=== PATIENT | female | born 1995 | race Asian ===

== ENCOUNTER 2017-05-18 21:16 | Emergency (ER) | payer OTHER ==
[~2017-05-18] VITALS: Ht 165.1 cm; Wt 6.0 kg
[2017-05-18 21:38] VITALS: TEMP 36.6; Ht 165.1 cm; Wt 6.0 kg
[2017-05-18] MEDS ORDERED: XYLOCAINE 1%/SOD BICARB 20 ML VIAL INFIL ONE (22:15)
--- NOTE | 2017-05-18 22:23 | DIAGNOSTIC IMAGING REPORT ---
R FINGER(S) MIN 2 VIEWS ROUTINE CLINICAL HISTORY: R distal finger infection infection COMPARISON: None. DISCUSSION: The bones and joint spaces appear intact. There is no evidence of fracture, dislocation or bony disease. Nonspecific soft tissue edema overlying the distal phalanx third finger IMPRESSION: Soft tissue edema. No acute bony abnormality. The above report was generated using voice recognition software. It may contain grammatical, syntax or spelling errors. Electronically signed by: Isaac Duncan M.D. 05/18/2017 10:22 PM Dictated Date/Time: 05/18/2017 10:21 PM
--- NOTE | 2017-05-18 23:04 | EMERGENCY ROOM VISIT NOTE ---
ED Visit Note First contact with patient: 21:49 CHIEF COMPLAINT: Finger infection HISTORY OF PRESENT ILLNESS: This 22-year-old female patient presents to the emergency department complaining of pain and swelling of the distal aspect of the right third finger. Doesn't remember any injury to the area before it got swollen and tender. . The patient has not had a fever. There has been no discharge. The patient has tried nothing for pain. The patient's tetanus shot is up-to-date. REVIEW OF SYSTEMS: A 6 system review of systems was completed with positives and pertinent negatives listed in the HPI. ALLERGIES: Nickel MEDICATIONS: Reviewed PMH: Otherwise healthy. SOCIAL HISTORY: The patient is a [employer] student. PHYSICAL EXAM: Vital Signs: Reviewed Nurse's notes, vital signs stable. GENERAL: 22-year-old female, in no acute distress, nontoxic in appearance , well-developed, well-nourished. SKIN: There is erythema, swelling, and tenderness of the nail fold around the right third digit. There is fluctuance but no drainage. There is no pus under the nail. There is no lymphangitic streaking up the hand. Capillary refill less than two seconds. MUSCULOSKELETAL : The patient has full range of motion and strength of the right third digit. Peripheral pulses 2+. ED COURSE: I examined the patient. A finger x-ray was obtained Patient Name: NURIA PERDOMO Unit Number: [id number] Dictated: 05/18/172220 Transcribed: 05/18/172220 MS Printed Date/Time: [~ rep prt dt]/[~ rep prt tm] [~ rep ct labl] - [~ rep ct ivnm] [facility] [place] [address] Dictated: 05/18/172220 Transcribed: 05/18/172220 MS Printed Date/Time: [~ rep prt dt]/[~ rep prt tm] [~ rep ct labl] - [~ rep ct ivnm] IMPRESSION: Soft tissue edema. No acute bony abnormality. The above report was generated using voice recognition software. It may contain grammatical, syntax or spelling errors. Electronically signed by: Isaac Duncan M.D. 05/18/2017 10:22 PM Dictated Date/Time: 05/18/2017 10:21 PM The status of this report is Signed. Draft = Not yet reviewed or approved by Radiologist. Signed = Reviewed and approved by Radiologist. <AttendingPhy></AttendingPhy> <FamilyPhy>No Doctor, Assigned</FamilyPhy> < PrimaryPhy>No Doctor, Assigned</PrimaryPhy> <UnitNumber>[id number]</UnitNumber> <VisitNumber>[id number]</VisitNumber> <PatientName>NURIA PERDOMO</PatientName> < DateOfBirth>1995</DateOfBirth> <Location>[facility]</Location> <ServiceDate>03/25</ServiceDate> <MNE>ESINDI</MNE> <OrderingPhy>Gisele Katz PA-C</ OrderingPhy> <OrderingPhyMNE>f rep ord dr pantoja</OrderingPhyMNE> <DictatingPhyMNE> f rep dict dr pantoja</DictatingPhyMNE> <CCListMNE>f rep ct mne</CCListMNE> < AdmittingPhyMNE>f pt admit dr pantoja</AdmittingPhyMNE> <AttendingPhyMNE>f pt attend dr pantoja</AttendingPhyMNE> <ConsultingPhyMNE>f pt consult dr pantoja</ConsultingPhyMNE> <FamilyPhyMNE>f pt fam dr pantoja</FamilyPhyMNE> <OtherPhyMNE>f pt other dr pantoja</OtherPhyMNE> < PrimaryPhyMNE>f pt prim care dr pantoja</PrimaryPhyMNE> <ReferringPhyMNE>f pt referring dr pantoja</ReferringPhyMNE> Verbal consent was obtained to perform the procedure. The area of fluctuance of the with cleaned with Betadine. 1% lidocaine An 11 blade was then used to make a 0.5 cm incision to drain the paronychia. A large amount of pus was expressed and a culture was obtained. More was expressed with pressure until all of the pus was relieved. The area was thoroughly cleaned with sterile saline. The area was then dressed with bacitracin and a bandage. The patient tolerated the procedure well. The patient was discharged home in stable condition. DIAGNOSIS: Paronychia of the right finger DISCHARGE INSTRUCTIONS: Wash the finger twice daily with soap and water. Do not soak the finger in dirty water such as doing dishes or taking baths. Soak the finger in clean warm water 4 times a day for 20 minutes each, take Keflex 500 mg 4 times daily. Return if the area seems to be getting worse. This chart was completed in part utilizing [employer] Voice Recognition software. Attempts were made to minimize the grammatical errors, random word insertions, pronoun errors and incomplete sentences. Any formal questions or concerns about the content, text or information contained within the body of this dictation should be directly addressed to the provider for clarification.
[2017-05-18] MEDS ORDERED: CEPH500C PO (23:07)
[2017-05-18] MEDS ORDERED: CEPHALEXIN MONOHYDRATE 250 MG CAP PO ONE (23:15)
[2017-05-18 23:26] VITALS: BP 132/84; PULSE 69; O2SAT 98
== END 2017-05-18 23:27 | disposition home or self-care (01) ==
LOC: C.EDB 21:17 → C.EDD 23:27
DX: L03.011 Cellulitis of right finger (principal)

== ENCOUNTER 2018-08-07 04:50 | Observation (INO) ==
[2018-08-07] MEDS ORDERED: SODIUM CHLORIDE 0.9% 1000ML 1,000 ML IV ONE ×2 (05:17→06:27)
[2018-08-07] MEDS ORDERED: DiphenhydrAMINE HCL 50 MG/ML VIAL IV STA (05:18)
[2018-08-07] MEDS ORDERED: KETOROLAC 30 MG/ML VIAL IV STA (05:18)
--- NOTE | 2018-08-07 05:22 | Emergency Department Note ---
ED Provider Note Name: Erlin Toribio Age: 23 F Arrives Via: POV Informant: Pt and Friend CC: lower abdominal pain HPI: 23 female arrives for evaluation of lower abdominal pain. Notes gradually worsening over last 12 hours. Mild discomfort this weekend while she was in [place] at a music festival. She felt that she may have hurt it while jumping. Has had issues with bowel movements over the last few days. No fevers, chills, nausea, vomiting, cp, sob, leg swelling, rashes, urinary symptoms, diarrhea, nor other symptoms. She notes periodic abdominal pains. Movement makes pain worse. Rest makes better. Advil did not help pain earlier. ROS: See above HPI for pertinent positives & negatives. A total of 10 systems reviewed and were otherwise negative. Past Medical History: GERD Past Surgical History: None Family History: No abdominal issues Social History: Student, no smoking, no drugs Home Medications: None Allergies None Physical: Vitals: 81/58, P 96, R 18, T 36.6, O2 99 Exam: GENERAL: Patient is uncomfortable appearing and in mild distress. EYES: No scleral icterus, unremarkable pupils. ENT: Mucous membranes moist, no nasal congestion. NECK: No masses appreciated, no meningismus, trachea is midline. RESPIRATORY: No dyspnea. Clear to auscultation and equal bilaterally. No wheeze, no rhonchi. CARDIOVASCULAR: Regular rate and rhythm. No murmurs, rubs, gallops appreciated. GASTROINTESTINAL: TTP entire lower abdomen, otherwise abdomen soft, non-tender, no peritonitis. Bowel sounds positive. No masses appreciated. BACK: No midline tenderness, no CVA tenderness EXTREMITIES: Normal motion all extremities, no cyanosis, no edema. NEUROLOGIC: Alert and oriented, no acute motor or sensory deficits, no focal weakness, cranial nerves grossly intact. SKIN: No rash, no jaundice, no diaphoresis. ED Course: Prior Medical Record, Triage/Nursing Notes, Medications, Allergies reviewed by Me Vital Signs: reviewed and remarkable for hypotension (chronic based on chart review) Labs: Reviewed and remarkable for wnl Interventions: Saline Lock, Benadryl 50mg IV, Toradol 30mg IV Imaging: X ray results are stated below per my interpretation: KUB: 1 view: Moderate amount of air throughout colon. No evidence obstruction appreciated. Umbilical piercing noted. EKG: None Consults: None Reassessments/Times: 0605 Continued pain with palpation though sleeping when not being examined Blood pressure: Hypotensive (chronic) No Referral necessary Disposition: Signed out to Dr Montgomery pending CT Differentials: Appendicitis, UTI, Renal Colic, Dehdyration, Constipation, Colitis, Pancreatitis, GB, PUD, , Ectopic , Ovarian torsion, TOA amongst other pathologies. Medical Decision Makin yr old female with bilateral lower abodminal TTP. She has some upper abdominal TTP as well. Work-up benign. Continued pain with palpation of abdomen thus felt further imaging necessary. Signed out to Dr Montgomery. Impression: Bilateral Lower Abdominal Pain Lenin Pollard MD Impression & Plan Bilateral lower abdominal pain Past Med/Surg History Social History Feels Safe at Home: Yes Smoking Status: Current some day smoker Results & Data Vital Signs Vital Signs - 24 hr 08/07/18 04:54 08/07/18 05:55 Temperature 36.6 C Temperature Source Oral Sepsis Recent Fever Within 48 Hours No Sepsis Action Taken by Nursing No Action Required Pulse Rate 96 H Pulse Rate [Right Finger] 80 Respiratory Rate 18 16 Respiratory Effort / Characteristics Non-Labored Non-Labored Spontaneous Respiratory Depth Normal Normal Respiratory Pattern Regular Blood Pressure 81/58 L Blood Pressure [Right Arm] 96/54 L Blood Pressure Mean 65 Blood Pressure Mean [Right Arm] 68 Blood Pressure Position Sitting Blood Pressure Position [Right Arm] Lying Pulse Oximetry 99 100 Oxygen Delivery Method Room Air Room Air Laboratory Data Result diagrams: 08/07/18 05:29 08/07/18 05:29 Lab Results 08/07/18 08/07/18 08/07/18 Range/Units 05:29 05:29 05:29 WBC 8.60 (4.8-10.8) K/uL RBC 4.12 L (4.2-5.4) M/uL Hgb 12.4 (12.0-16.0) g/dL Hct 35.7 L (37-47) % MCV 86.7 (80-100) fL MCH 30.1 (25-34) pg MCHC 34.7 (32-36) g/dL RDW Std Deviation 39.8 (36.4-46.3) fL RDW Coeff of Phoebe 12.3 (11.5-14.5) % Plt Count 152 (130-400) K/uL MPV 10.4 (7.4-10.4) fL Immature Gran % (Auto) 0.2 % Neut % (Auto) 86.3 % Lymph % (Auto) 9.4 % Rowan % (Auto) 4.0 % Eos % (Auto) 0.1 % Baso % (Auto) 0.0 % Immature Gran # (Auto) 0.02 (0.00-0.02) K/uL Neut # (Auto) 7.42 H (1.4-6.5) K/uL Lymph # (Auto) 0.81 L (1.2-3.4) K/uL Rowan # (Auto) 0.34 (0.11-0.59) K/uL Eos # (Auto) 0.01 (0-0.5) K/uL Baso # (Auto) 0.00 (0-0.2) K/uL Sodium 140 (136-145) mmol/L Potassium 3.3 L (3.5-5.1) mmol/L Chloride 107 (98-107) mmol/L Carbon Dioxide 29 (21-32) mmol/L Anion Gap 4.0 (3-11) BUN 13 (7-18) mg/dl Creatinine 0.75 (0.6-1.2) mg/dl Est Cr Clr Drug Dosing 102.5 ml/min Est GFR ( Amer) 132.1 Est GFR (Non-Af Amer) 113.9 BUN/Creatinine Ratio 17.1 (10-20) Glucose 102 H (70-99) mg/dl Calcium 8.2 L (8.5-10.1) mg/dl Total Bilirubin 0.6 (0.2-1) mg/dl Direct Bilirubin 0.2 (0-0.2) mg/dl AST 11 L (15-37) U/L ALT 18 (12-78) U/L Alkaline Phosphatase 59 (45-117) U/L Total Protein 6.9 (6.4-8.2) gm/dl Albumin 3.6 (3.4-5.0) gm/dl Lipase 84 (73-393) U/L HCG, Qual Negative (Negative) Administered Medications Sodium Chloride (Nss 1000ml) 1,000 mls @ 999 mls/hr IV .Q1H1M ONE Stop: 08/07/18 06:17 Last Admin: 04/02/19 05:20 Dose: 999 mls/hr Documented by: [id number] Discontinued Medications Diphenhydramine HCl (Benadryl) 50 mg IV NOW STA Stop: 08/07/18 05:19 Last Admin: 08/07/18 05:23 Dose: 50 mg Documented by: [id number] Ketorolac Tromethamine (Toradol) 30 mg IV NOW STA Stop: 08/07/18 05:19 Last Admin: 08/07/18 05:23 Dose: 30 mg Documented by: [id number] Discharge Plan Visit Data Chief Complaint: Abdominal Pain Stated Complaint: STOMACH ACHE ED Provider: Lenin Pollard Discharge Problem: Bilateral lower abdominal pain Forms Stand Alone Forms: [facility] [employer] Prescriptions Prescriptions: No Action ibuprofen [Advil] 200 mg Tablet 200 mg PO QID PRN (Reason: Pain) RF: 0
[2018-08-07 05:42] LABS: Eosinophils # (auto) 0.01 K/uL (0-0.5); Eosinophils % (auto) 0.1 %; Hematocrit (blood only) 35.7 % (37-47); Hemoglobin 12.4 g/dL (12.0-16.0); Immature Granulocytes # (auto) 0.02 K/uL (0.00-0.02); Immature Granulocytes % (auto) 0.2 %; Lymphocytes # (auto) 0.81 K/uL (1.2-3.4); Lymphocytes % (auto) 9.4 %; Mean Corpuscular Hgb Conc 34.7 g/dL (32-36); Mean Corpuscular Volume 86.7 fL (80-100); Mean Platelet Volume 10.4 fL (7.4-10.4); Monocytes # (auto) 0.34 K/uL (0.11-0.59); Neutrophils # (auto) 7.42 K/uL (1.4-6.5); Neutrophils % (auto) 86.3 %; Platelet Count 152 K/uL (130-400); RDW Coefficient of Variation 12.3 % (11.5-14.5); RDW Standard Deviation 39.8 fL (36.4-46.3); Red Blood Count 4.12 M/uL (4.2-5.4)
[2018-08-07 05:59] LABS: Albumin Level 3.6 gm/dl (3.4-5.0); BUN Creatinine Ratio 17.1 (10-20); Bilirubin Direct 0.2 mg/dl (0-0.2); Calcium 8.2 mg/dl (8.5-10.1); Creatinine Clr Calc Pharmacy 102.5 ml/min; Est GFR (African American) 132.1; Est GFR (Non-African American) 113.9; Potassium 3.3 mmol/L (3.5-5.1)
[2018-08-07 06:02] LABS: Bilirubin,Total 0.6 mg/dl (0.2-1); Total Protein 6.9 gm/dl (6.4-8.2)
[2018-08-07 06:03] LABS: Pregnancy Test, Serum Negative (Negative)
--- NOTE | 2018-08-07 06:37 | XRay Report ---
XR KUB CLINICAL HISTORY: 23 years-old Female presenting with lower abdominal pain, nausea, vomiting constipa tion. TECHNIQUE: Single supine view of the abdomen was obtained. COMPARISON: None. FINDINGS: Nonobstructive bowel gas pattern. Possible mild wall thickening of the ascending colon, which also keen s a mild stool burden. No gross pneumoperitoneum allowing for supine technique. Allowing for bowel gas and stool, no calcifications to suggest nephrolithiasis. Osseous structures normal. Lung bases clear. IMPRESSION: 1. All thickening of the ascending colon suggested, which could indicate colitis. Electronically signed by: Giovanny Nichole M.D. 08/07/2018 6:36 AM
[2018-08-07 06:58] LABS: Appearance Urine Clear (Clear); Bilirubin Urine Negative (Negative); Blood Urine Negative (Negative); Color Urine Yellow; Glucose Urine UA Negative (Negative); Ketones Urine Trace (Negative); Leukocyte Esterase Urine Negative (Negative); Nitrite Urine Negative (Negative); Protein Urine Negative (Negative); Specific Gravity Urine 1.018 (1.000-1.030); Urobilinogen Urine Negative (Negative); pH Urine 6.5 (4.5-7.5)
[2018-08-07 07:04] LABS: Pregnancy Test, Urine Negative (Negative)
[2018-08-07] MEDS ORDERED: IOVERSOL 100ml IV PRN (09:20)
--- NOTE | 2018-08-07 09:30 | CT Scan Report ---
CT abd pelvis oral and IV con CLINICAL HISTORY: 23 years-old Female presenting with generalized lower abdominal pain, epigastric pa in on exertion, right lower quadrant pain. TECHNIQUE: Multidetector CT of the abdomen and pelvis was performed after the administration of oral and intravenous contrast. IV contrast: 94 mL of Optiray 320. One or more dose lowering techniques wer e used consistent with the principles of ALARA (as low as reasonably achievable), including automatic exposure control, mA or kV adjustment to individual patient size, and/or use of iterative reconstruc tion. COMPARISON: Ultrasound of the right upper quadrant from 06/06/2018. CT DOSE (mGy.cm): The estimated cumulative dose is 298.50 mGy.cm. FINDINGS: Award Clerk topogram: Unremarkable. Lung bases: Normal heart size. No pericardial or pleural effusion. Minimal dependent changes likely a telectasis. Liver: Normal morphology. No liver lesion. Patent hepatic vasculature. Periportal edema may be due to aggressive volume resuscitation. Biliary: No intrahepatic or extrahepatic biliary ductal dilatation. Mild gallbladder wall thickening may be secondary to the presence of hepatic edema in the setting of aggressive volume resuscitation. The gallbladder is otherwise normal. Pancreas: Normal. Spleen: Normal. Adrenal glands: Normal. Kidneys and ureters: Normal. No hydronephrosis. Bladder: Normal. Pelvic organs: Uterus and ovaries normal. Bowel: Mucosal hyperemia of the appendix, which has a dilated lumen and a diameter of 8 mm. There is wall thickening of the appendix and surrounding inflammatory change. No gross evidence of perforation at this time. The appendix is not opacified with oral contrast. Mild distention of small bowel witho ut convincing evidence of obstruction. Peritoneal cavity: Trace abdominal pelvic ascites. No free intraperitoneal gas. Lymph nodes: Several prominent right lower quadrant mesenteric lymph nodes. Vasculature: Aorta and IVC patent and normal in caliber. Abdominal wall: Normal. Musculoskeletal: Normal. IMPRESSION: 1. Acute uncomplicated appendicitis with significant inflammatory change in the right lower quadrant . No abscess or gross evidence of perforation at this time. Surgical consultation is necessary. 2. Trace abdominal pelvic ascites may relate to reactive inflammatory changes in the peritoneum or m ore likely due to aggressive volume resuscitation given the presence of periportal edema and perichol ecystic fluid which also suggest aggressive volume resuscitation. The report will be called/faxed according to standard departmental protocol. Electronically signed by: Giovanny Nichole M.D. 08/07/2018 9:29 AM
[2018-08-07] MEDS ORDERED: cefOXitin 1,000 MG/50 ML BAG IV STA (09:47)
[2018-08-07] MEDS ORDERED: SODIUM CHLORIDE 0.9% 1000ML 1,000 ML IV SCH (10:00)
--- NOTE | 2018-08-07 10:03 | History & Physical Report ---
Date of Service August 07, 2018 Assessment & Plan (1) Acute appendicitis: Mefoxin was given in the ED. Will plan for laparoscopic appendectomy this morning by Dr. Dale. History of Present Illness Primary Care Provider: [facility] 23 y/o female with 48 hours abdominal pain localizing to RLQ. Had chills, no N/V. Has been NPO since last evening. No previous surgery or ongoing medical problems. Allergies Allergy/AdvReac Type Severity Reaction Status Date / Time No Known Allergies Allergy Unverified 08/07/18 05:33 Home Medications Home Medications Medication Instructions Recorded Confirmed Type ibuprofen [Advil] 200 mg PO QID PRN 08/07/18 08/07/18 History Past Med/Surg History Social History Feels Safe at Home: Yes Smoking Status: Current some day smoker Review of Systems Constitutional: + chills; no fever and no anorexia Gastrointestinal: + abdominal pain; no bloating, no nausea and no vomiting Physical Exam Vital Signs (Past 24 Hours): Last Vital Signs Temp 36.6 C 08/07/18 04:54 Pulse 90 08/07/18 07:39 Resp 16 08/07/18 07:39 BP 99/63 L 08/07/18 07:39 Pulse Ox 100 08/07/18 07:39 Constitutional: WD/WN, vitals as above Respiratory: normal respiratory effort, lungs clear to auscultation Cardiovascular: RRR, no murmur, no edema Gastrointestinal (Abdomen): Inspection/Auscultation: abdomen not distended Percussion/Palpation: + abdomen tender, + guarding (voluntary) and abdomen soft Results & Data Diagnostic Findings [place], [place] [phone] CT Scan Report Patient: NURIA PERDOMOAdmit Date: 08/07/18 MR#: [id number]: [address] Acct ID:[id number]: Date: 1995[facility] Zip: [place] [address] Age: 23Location: ED Sex: F Room/Bed: Att Phy: Diagnosis: STOMACH ACHE Danyelle [facility]: [facility] Fam Phy: Interpreting Phy: Giovanny Nichole MD Admit Phy: Ordering Phy: Latrice, Lenin F., M.D. cc: ~ CT abd pelvis oral and IV con CLINICAL HISTORY: 23 years-old Female presenting with generalized lower abdominal pain, epigastric pain on exertion, right lower quadrant pain. TECHNIQUE: Multidetector CT of the abdomen and pelvis was performed after the administration of oral and intravenous contrast. IV contrast: 94 mL of Optiray 320. One or more dose lowering techniques were used consistent with the principles of ALARA (as low as reasonably achievable), including automatic exposure control, mA or kV adjustment to individual patient size, and/or use of iterative reconstruction. COMPARISON: Ultrasound of the right upper quadrant from 06/06/2018. CT DOSE (mGy.cm): The estimated cumulative dose is 298.50 mGy.cm. FINDINGS: Mine Analyst topogram: Unremarkable. Lung bases: Normal heart size. No pericardial or pleural effusion. Minimal dependent changes likely atelectasis. Liver: Normal morphology. No liver lesion. Patent hepatic vasculature. Periportal edema may be due to aggressive volume resuscitation. Biliary: No intrahepatic or extrahepatic biliary ductal dilatation. Mild gallbladder wall thickening may be secondary to the presence of hepatic edema in the setting of aggressive volume resuscitation. The gallbladder is otherwise normal. Pancreas: Normal. Spleen: Normal. Adrenal glands: Normal. Kidneys and ureters: Normal. No hydronephrosis. Bladder: Normal. Pelvic organs: Uterus and ovaries normal. Bowel: Mucosal hyperemia of the appendix, which has a dilated lumen and a diameter of 8 mm. There is wall thickening of the appendix and surrounding inflammatory change. No gross evidence of perforation at this time. The appendix is not opacified with oral contrast. Mild distention of small bowel without convincing evidence of obstruction. Peritoneal cavity: Trace abdominal pelvic ascites. No free intraperitoneal gas. Lymph nodes: Several prominent right lower quadrant mesenteric lymph nodes. Vasculature: Aorta and IVC patent and normal in caliber. Abdominal wall: Normal. Musculoskeletal: Normal. IMPRESSION: 1. Acute uncomplicated appendicitis with significant inflammatory change in the right lower quadrant. No abscess or gross evidence of perforation at this time. Surgical consultation is necessary. 2. Trace abdominal pelvic ascites may relate to reactive inflammatory changes in the peritoneum or more likely due to aggressive volume resuscitation given the presence of periportal edema and pericholecystic fluid which also suggest aggressive volume resuscitation. The report will be called/faxed according to standard departmental protocol. Electronically signed by: Giovanny Nichole M.D. 08/07/2018 9:29 AM
[2018-08-07] MEDS ORDERED: LIDOCAINE HCL 2% 2 ML VIAL/AMP(20MG/ML) INFIL ONE (10:16)
[2018-08-07] MEDS ORDERED: MIDAZOLAM HCL 1 MG/ML 2ML VIAL ONE (10:16)
[2018-08-07] MEDS ORDERED: ONDANSETRON INJ 2 MG/ML 2 ML VIAL ONE (10:16)
[2018-08-07] MEDS ORDERED: PROPOFOL IV EMULSION 10 MG/ML 20 ML VIAL IV ONE (10:16)
[2018-08-07] MEDS ORDERED: fentaNYL citrate 100 MCG/2 ML VIAL ONE ×3 (10:16→12:19)
[2018-08-07] MEDS ORDERED: DEXAMETHASONE SOD INJ 4 MG/ML VIAL ONE (10:16)
[2018-08-07] MEDS ORDERED: BUPIVACAINE/EPINEPHRINE 0.5% MPF 1:200,000 30 ML VIAL ONE (10:19)
[2018-08-07] MEDS ORDERED: ACETAMINOPHEN 1000 MG/100 ML IV IV ONE (10:23)
--- NOTE | 2018-08-07 10:45 | Anesthesiology Consultation ---
Date of Service August 07, 2018 Assessment & Plan (1) Encounter for pre-operative examination: Chart Review Chart Review: Acceptable Risk for Surgery NPO Date Last Intake of Fluids: 08/07/18 Time Last Intake of Fluids: 03:00 Date Last Intake of Solids: 08/06/18 Time Last Intake of Solids: 23:00 History Surgery Operation Date: 08/07/18 07:30 Proposed Procedures p Laparoscopic Appendectomy - Silvano Dale, DO Height/Weight Height: 5 ft 4 in Weight: 60.9 kg Allergies Allergy/AdvReac Type Severity Reaction Status Date / Time No Known Allergies Allergy Unverified 08/07/18 05:33 Medications Home Medications Medication Instructions Recorded Confirmed Last Taken ibuprofen [Advil] 200 mg PO QID PRN 08/07/18 08/07/18 08/06/18 Active Medications Generic Name Dose Route Start Last Admin Trade Name Freq PRN Reason Stop Dose Admin Ioversol 94 ml 08/07/18 09:20 08/07/18 09:20 Optiray 320 100ml IV 08/11/18 09:19 94 ml ONCE PRN Administration Interaction Checking Past Medical History Medical History Healthy female Past Surgical History Surgical History No significant past surgical history Social History Smoking Status: Current some day smoker Physical Exam Vital Signs Last Vital Signs Temp 36.6 C 08/07/18 04:54 Pulse 85 08/07/18 10:15 Resp 16 08/07/18 10:15 BP 104/69 08/07/18 10:15 Pulse Ox 99 08/07/18 10:15 Testing Laboratory Results 08/07/18 05:29 08/07/18 05:29 Urine Color Yellow 08/07/18 06:45 Urine Appearance Clear (Clear) 08/07/18 06:45 Urine pH 6.5 (4.5-7.5) 08/07/18 06:45 Ur Specific [place] 1.018 (1.000-1.030) 08/07/18 06:45 Urine Protein Negative (Negative) 08/07/18 06:45 Urine Glucose (UA) Negative (Negative) 08/07/18 06:45 Urine Ketones Trace (Negative) H 08/07/18 06:45 Urine Nitrite Negative (Negative) 08/07/18 06:45 Ur Leukocyte Esterase Negative (Negative) 08/07/18 06:45 Urine Test Negative (Negative) 08/07/18 06:45 08/07/18 06:45 Urine Test Negative
[2018-08-07] MEDS ORDERED: fentaNYL citrate 100 MCG/2 ML VIAL IV PRN (10:47)
[2018-08-07] MEDS ORDERED: ATROPINE SULFATE 0.1 MG/ML 10ML SYR IV PRN (10:47)
[2018-08-07] MEDS ORDERED: KETOROLAC 30 MG/ML VIAL IV PRN (10:47)
[2018-08-07] MEDS ORDERED: ONDANSETRON INJ 2 MG/ML 2 ML VIAL IV PRN ×2 (10:47→13:18)
--- NOTE | 2018-08-07 11:11 | History & Physical Bridge Note ---
Date of Service August 07, 2018 History & Physical Bridge Note I have examined the patient, reviewed the History & Physical and in the interval since the performance of the History & Physical I have noted the following changes of clinical significance: no changes noted. as above. discussed options/risks discussed. bleeding/infection/leaks/injury to other organs/dvt/pe etc... questions answered. ok to proceed with lap/poss open appendectomy
--- NOTE | 2018-08-07 12:21 | Operative Report ---
Post Operative Report Pre & Post Diagnosis Operation Date: 08/07/18 07:30 Pre-Op Diagnosis: Acute Appendicitis Post-Op Diagnosis: Acute Appendicitis Procedure Operation Date: 08/07/18 07:30 Actual Procedures p Laparoscopic Appendectomy(Not Applicable) - Silvano Dale DO Surgeon Silvano Dale DO Parachute Harness Rigger brian Hernandez Estimated Blood Loss 5 Findings Consistent with Post-Op Diagnosis Specimens appendix Description of Procedure After informed consent was obtained the patient was taken to the operating room and placed in supine position. After successful intubation a Marcus catheter was placed and the abdomen was sterilely prepped and draped in usual fashion. An infraumbilical incision was made with an 11 blade scalpel and carried down through the soft tissue using cautery. The anterior rectus fascia was opened using cautery and 2 #0 Vicryl stay sutures were placed. Peritoneum was entered using blunt finger penetration and a finger sweep was performed. A 12 mm Pugh trocar was placed and the abdomen was insufflated to 18 mmHg. Laparoscope was inserted and the abdomen was examined 360 degrees. We immediately noted a fair to moderate amount of purulent fluid in the lower pelvis and right lower quadrant. There was some associated inflamed small bowel. I placed a suprapubic 5 mm port and in the left lower quadrant a 12 mm port under direct vision. We immediately suctioned out the purulent fluid. We then placed the patient in a Trendelenburg position and slightly air planed to the left. We began examining the right lower quadrant. I pulled the cecum away from the abdominal sidewall exposing acute appendicitis with a small hole in the midportion of the appendix. We were able to take down some of the white line of Toldt using cautery scissors. This allowed me to roll the cecum medially. This exposed the base of the appendix which had not ruptured. A [place] dissector was used to create a small window in the mesentery of the appendix. A POOJA brown cartridge stapler was then used to transect the appendix at its base. A second firing of a POOJA brown 60 mm cartridge was used to take down the mesentery of the appendix. The appendix was placed into an Endo catch bag and removed. We used several bags of irrigation to thoroughly irrigate the entire abdomen including the right and left upper quadrants and pelvis as well as the right lower quadrant. We continued irrigating until the irrigant was all clear. A 10 flat Dong-Bowen drain was placed into the pelvis and up along the right paracolic gutter and brought out through 1 of the trocar sites. It was secured to the skin using 0 Vicryl. No other gross abnormalities were identified in the abdominal cavity. I did examine the terminal 6 feet of small bowel and did not see any these. The trochars were all removed and the abdomen desufflated. The fascia of the camera port was closed using 0 Vicryl in a [id number] fashion. All wounds were irrigated and closed using 4-0 Monocryl. Marcaine was injected around them for postoperative analgesia and skin glue used as a dressing. The patient was awakened extubated and transferred recovery in stable condition. My physician radiology practitioner assistant was present the entire case. Helped prep the patient. Helped run the camera during my procedure as well as with wound closure and dressing placement. I attest to the content of the Intraoperative Record and any orders documented therein. Any exceptions are noted below.
[2018-08-07] MEDS ORDERED: MoRPHine SULFATE 2 MG/ML CARP IV PRN (13:18)
[2018-08-07] MEDS ORDERED: MoRPHine SULFATE 4 MG/ML 1 ML CARP\\VIAL IV PRN (13:18)
--- NOTE | 2018-08-07 13:25 | Anesthesiology Progress Note ---
Date of Service August 07, 2018 Anesthesia Post Procedure Vital Signs Vital Signs: Temp Pulse Pulse Pulse Resp BP BP 08/07/18 12:59 37.5 C 84 19 105/63 08/07/18 12:50 80 15 110/63 08/07/18 12:40 82 16 101/64 08/07/18 12:30 93 H 14 114/66 08/07/18 12:22 36.5 C 96 H 12 111/74 08/07/18 10:42 37.2 C 101 H 20 08/07/18 10:15 85 16 08/07/18 07:39 90 16 08/07/18 05:55 80 16 08/07/18 04:54 36.6 C 96 H 18 81/58 L BP Pulse Ox 08/07/18 12:59 98 08/07/18 12:50 99 08/07/18 12:40 100 08/07/18 12:30 100 08/07/18 12:22 100 08/07/18 10:42 95/57 L 100 08/07/18 10:15 104/69 99 08/07/18 07:39 99/63 L 100 08/07/18 05:55 96/54 L 100 08/07/18 04:54 99 Pain Intensity Abdomen: Pain Intensity: 2 Notes Mental Status: alert / awake / arousable Patient Amnestic to Procedure: Yes Nausea / Vomiting: adequately controlled Pain: adequately controlled Airway Patency, RR, SpO2: stable & adequate BP & HR: stable & adequate Hydration State: stable & adequate Anesthetic Complications: no major complications apparent
[2018-08-07] MEDS ORDERED: PIPERACILLIN/TAZOBACTAM 3.375 GM in DEXTROSE 5% 100 ML IV STA (13:31)
[2018-08-07] MEDS ORDERED: PIPERACILL/TAZOBAC CONSULT ACTIVE PRN (13:36)
[2018-08-07] MEDS: LACTATED RINGER'S 1,000 ML IV SCH (13:49)
--- NOTE | 2018-08-07 16:06 | Emergency Department Note ---
Entered by Racheal Herrera acting as a scribe for Reg Montgomery MD History of Present Illness General Chief complaint: Abdominal Pain Stated complaint: STOMACH ACHE Time Seen by Provider: 08/07/18 04:59 History of Present Illness Maximum Pain Intensity: 7 Home Medications Home Medications Medication Instructions Recorded Confirmed Type ibuprofen [Advil] 200 mg PO QID PRN 08/07/18 08/07/18 History Allergies Allergy/AdvReac Type Severity Reaction Status Date / Time No Known Allergies Allergy Unverified 08/07/18 05:33 Past Med/Surg History Medical History Healthy female Surgical History No significant past surgical history Social History Preferred Language: Jordanian Communication Ability: Effective Mass Spectrometry Manager Required: No Beliefs That Will Affect Care: None Current Living Situation: Significant Other Other Information That Helps Us Care for You: No Feels Safe at Home: Yes Smoking Status: Current every day smoker Hx Alcohol Use: Yes Hx Substance Use: No Physical Exam Vital Signs Vital Signs - 24 hr 08/07/18 04:54 08/07/18 05:55 08/07/18 07:39 Temperature 36.6 C Temperature Source Oral Sepsis Recent Fever Within 48 Hours No Sepsis Action Taken by Nursing No Action Required Pulse Rate 96 H Pulse Rate [Apical] Pulse Rate [Right Finger] 80 90 Pulse Rhythm [Apical] Pulse Rhythm [Right Finger] Pulse Strength [Right Finger] Respiratory Rate 18 16 16 Respiratory Effort / Characteristics Non-Labored Non-Labored Spontaneous Respiratory Depth Normal Normal Respiratory Pattern Regular Blood Pressure 81/58 L Blood Pressure [Left Arm] Blood Pressure [Right Arm] 96/54 L 99/63 L Blood Pressure Mean 65 Blood Pressure Mean [Left Arm] Blood Pressure Mean [Right Arm] 68 75 Blood Pressure Position Sitting Blood Pressure Position [Left Arm] Blood Pressure Position [Right Arm] Lying Pulse Oximetry 99 100 100 Oxygen Delivery Method Room Air Room Air Room Air Oxygen Flow Rate 08/07/18 10:15 08/07/18 10:42 08/07/18 12:22 Temperature 37.2 C 36.5 C Temperature Source Oral Temporal Artery Scan Sepsis Recent Fever Within 48 Hours Sepsis Action Taken by Nursing Pulse Rate Pulse Rate [Apical] 96 H Pulse Rate [Right Finger] 85 101 H Pulse Rhythm [Apical] Regular Pulse Rhythm [Right Finger] Regular Pulse Strength [Right Finger] Normal Respiratory Rate 16 20 12 Respiratory Effort / Characteristics Non-Labored Spontaneous Non-Labored Spontaneous Respiratory Depth Normal Normal Respiratory Pattern Regular Regular Blood Pressure Blood Pressure [Left Arm] 111/74 Blood Pressure [Right Arm] 104/69 95/57 L Blood Pressure Mean Blood Pressure Mean [Left Arm] 86 Blood Pressure Mean [Right Arm] 80 69 Blood Pressure Position Blood Pressure Position [Left Arm] Lying Blood Pressure Position [Right Arm] Sitting Pulse Oximetry 99 100 100 Oxygen Delivery Method Room Air Room Air Oxymask Oxygen Flow Rate 10 08/07/18 12:30 08/07/18 12:40 08/07/18 12:50 Temperature Temperature Source Sepsis Recent Fever Within 48 Hours Sepsis Action Taken by Nursing Pulse Rate Pulse Rate [Apical] 93 H 82 80 Pulse Rate [Right Finger] Pulse Rhythm [Apical] Regular Regular Regular Pulse Rhythm [Right Finger] Pulse Strength [Right Finger] Respiratory Rate 14 16 15 Respiratory Effort / Characteristics Non-Labored Spontaneous Non-Labored Spontaneous Non-Labored Spontaneous Respiratory Depth Normal Normal Normal Respiratory Pattern Regular Regular Regular Blood Pressure Blood Pressure [Left Arm] 114/66 101/64 110/63 Blood Pressure [Right Arm] Blood Pressure Mean Blood Pressure Mean [Left Arm] 82 76 78 Blood Pressure Mean [Right Arm] Blood Pressure Position Blood Pressure Position [Left Arm] Lying Lying Lying Blood Pressure Position [Right Arm] Pulse Oximetry 100 100 99 Oxygen Delivery Method Oxymask Oxymask Room Air Oxygen Flow Rate 10 10 08/07/18 12:59 08/07/18 13:15 08/07/18 13:28 Temperature 37.5 C 36.8 C 36.8 C Temperature Source Temporal Artery Scan Oral Oral Sepsis Recent Fever Within 48 Hours Sepsis Action Taken by Nursing Pulse Rate Pulse Rate [Apical] 84 Pulse Rate [Right Finger] 85 85 Pulse Rhythm [Apical] Regular Pulse Rhythm [Right Finger] Pulse Strength [Right Finger] Respiratory Rate 19 16 16 Respiratory Effort / Characteristics Non-Labored Spontaneous Non-Labored Spontaneous Respiratory Depth Normal Normal Respiratory Pattern Regular Regular Blood Pressure Blood Pressure [Left Arm] 105/63 101/65 101/65 Blood Pressure [Right Arm] Blood Pressure Mean Blood Pressure Mean [Left Arm] 77 77 77 Blood Pressure Mean [Right Arm] Blood Pressure Position Blood Pressure Position [Left Arm] Lying Lying Lying Blood Pressure Position [Right Arm] Pulse Oximetry 98 99 99 Oxygen Delivery Method Room Air Room Air Room Air Oxygen Flow Rate 08/07/18 13:45 08/07/18 14:17 08/07/18 15:17 Temperature 37.1 C 37.1 C Temperature Source Oral Oral Sepsis Recent Fever Within 48 Hours Sepsis Action Taken by Nursing Pulse Rate Pulse Rate [Apical] Pulse Rate [Right Finger] 71 71 67 Pulse Rhythm [Apical] Pulse Rhythm [Right Finger] Regular Pulse Strength [Right Finger] Normal Respiratory Rate 14 16 16 Respiratory Effort / Characteristics Non-Labored Spontaneous Non-Labored Respiratory Depth Normal Normal Respiratory Pattern Regular Regular Blood Pressure Blood Pressure [Left Arm] 99/61 L 105/67 92/56 L Blood Pressure [Right Arm] Blood Pressure Mean Blood Pressure Mean [Left Arm] 73 79 68 Blood Pressure Mean [Right Arm] Blood Pressure Position Blood Pressure Position [Left Arm] Semi-fowlers Lying Lying Blood Pressure Position [Right Arm] Pulse Oximetry 97 97 97 Oxygen Delivery Method Room Air Room Air Room Air Oxygen Flow Rate Course 0950: I reviewed the patient's case with Lucio Hernandez PA-C General [facility], who will evalute the patient for further managment and care. Consultations Consultation #1: I reviewed the patient's case with Lucio Hernandez PA-C General Surgery [facility]. Time: 09:50 Administered Medications Lactated Ringer's (Lr) 1,000 mls @ 80 mls/hr IV .[id number] NAYANA Stop: 09/06/18 13:59 Last Infusion: 08/07/18 14:44 Dose: 80 mls/hr Documented by: [id number] Infusion: 08/07/18 14:02 Dose: 0 mls/hr Documented by: [id number] Admin: 08/07/18 13:49 Dose: 80 mls/hr Documented by: [id number] Discontinued Medications Bupivacaine HCl/Epinephrine Bitart (Sensorcaine/Epinephrine 0.5% Mpf 1:200,000) Confirm Administered Dose 30 ml .ROUTE .STK-MED ONE Stop: 08/07/18 10:20 Last Admin: 08/07/18 12:02 Dose: 10 ml Documented by: [id number] Diphenhydramine HCl (Benadryl) 50 mg IV NOW STA Stop: 08/07/18 05:19 Last Admin: 08/07/18 05:23 Dose: 50 mg Documented by: [id number] Sodium Chloride (Nss 1000ml) 1,000 mls @ 999 mls/hr IV .Q1H1M ONE Stop: 08/07/18 06:17 Last Infusion: 08/07/18 06:15 Dose: 0 mls/hr Documented by: [id number] Admin: 08/07/18 05:20 Dose: 999 mls/hr Documented by: [id number] Sodium Chloride (Nss 1000ml) 1,000 mls @ 999 mls/hr IV .Q1H1M ONE Stop: 08/07/18 07:27 Last Infusion: 08/07/18 08:29 Dose: 0 mls/hr Documented by: [id number] Admin: 08/07/18 06:49 Dose: 999 mls/hr Documented by: [id number] Cefoxitin Sodium (Mefoxin) 1,000 mg in 50 mls @ 100 mls/hr IV NOW STA Stop: 08/07/18 10:16 Last Infusion: 08/07/18 14:06 Dose: 0 mls/hr Documented by: [id number] Admin: 08/07/18 10:22 Dose: 100 mls/hr Documented by: [id number] Sodium Chloride (Nss 1000ml) 1,000 mls @ 125 mls/hr IV .Q8H NAYANA Stop: 09/06/18 09:59 Last Admin: 08/07/18 14:06 Dose: Not Given Documented by: [id number] Piperacillin Sod/Tazobactam (Sod 3.375 gm/ Dextrose) 115 mls @ 200 mls/hr IV NOW STA; Protocol Stop: 08/07/18 14:05 Last Infusion: 08/07/18 14:44 Dose: 0 mls/hr Documented by: [id number] Admin: 08/07/18 14:02 Dose: 200 mls/hr Documented by: [id number] Ioversol (Optiray 320 100ml) 94 ml IV ONCE PRN PRN Reason: Interaction Checking Stop: 08/11/18 09:19 Last Admin: 08/07/18 09:20 Dose: 94 ml Documented by: [id number] Ketorolac Tromethamine (Toradol) 30 mg IV NOW STA Stop: 08/07/18 05:19 Last Admin: 08/07/18 05:23 Dose: 30 mg Documented by: [id number] Medical Decision Making Laboratory Data Result diagrams: 08/07/18 05:29 08/07/18 05:29 Lab Results 08/07/18 08/07/18 08/07/18 Range/Units 05:29 05:29 05:29 WBC 8.60 (4.8-10.8) K/uL RBC 4.12 L (4.2-5.4) M/uL Hgb 12.4 (12.0-16.0) g/dL Hct 35.7 L (37-47) % MCV 86.7 (80-100) fL MCH 30.1 (25-34) pg MCHC 34.7 (32-36) g/dL RDW Std Deviation 39.8 (36.4-46.3) fL RDW Coeff of Phoebe 12.3 (11.5-14.5) % Plt Count 152 (130-400) K/uL MPV 10.4 (7.4-10.4) fL Immature Gran % (Auto) 0.2 % Neut % (Auto) 86.3 % Lymph % (Auto) 9.4 % Will % (Auto) 4.0 % Eos % (Auto) 0.1 % Baso % (Auto) 0.0 % Immature Gran # (Auto) 0.02 (0.00-0.02) K/uL Neut # (Auto) 7.42 H (1.4-6.5) K/uL Lymph # (Auto) 0.81 L (1.2-3.4) K/uL Will # (Auto) 0.34 (0.11-0.59) K/uL Eos # (Auto) 0.01 (0-0.5) K/uL Baso # (Auto) 0.00 (0-0.2) K/uL Sodium 140 (136-145) mmol/L Potassium 3.3 L (3.5-5.1) mmol/L Chloride 107 (98-107) mmol/L Carbon Dioxide 29 (21-32) mmol/L Anion Gap 4.0 (3-11) BUN 13 (7-18) mg/dl Creatinine 0.75 (0.6-1.2) mg/dl Est Cr Clr Drug Dosing 102.5 ml/min Est GFR ( Amer) 132.1 Est GFR (Non-Af Amer) 113.9 BUN/Creatinine Ratio 17.1 (10-20) Glucose 102 H (70-99) mg/dl Calcium 8.2 L (8.5-10.1) mg/dl Total Bilirubin 0.6 (0.2-1) mg/dl Direct Bilirubin 0.2 (0-0.2) mg/dl AST 11 L (15-37) U/L ALT 18 (12-78) U/L Alkaline Phosphatase 59 (45-117) U/L Total Protein 6.9 (6.4-8.2) gm/dl Albumin 3.6 (3.4-5.0) gm/dl Lipase 84 (73-393) U/L HCG, Qual Negative (Negative) Urine Color Urine Appearance (Clear) Urine pH (4.5-7.5) Ur Specific [place] (1.000-1.030) Urine Protein (Negative) Urine Glucose (UA) (Negative) Urine Ketones (Negative) Urine Blood (Negative) Urine Nitrite (Negative) Urine Bilirubin (Negative) Urine Urobilinogen (Negative) Ur Leukocyte Esterase (Negative) Urine Test (Negative) 08/07/18 08/07/18 Range/Units 06:45 06:45 WBC (4.8-10.8) K/uL RBC (4.2-5.4) M/uL Hgb (12.0-16.0) g/dL Hct (37-47) % MCV (80-100) fL MCH (25-34) pg MCHC (32-36) g/dL RDW Std Deviation (36.4-46.3) fL RDW Coeff of Phoebe (11.5-14.5) % Plt Count (130-400) K/uL MPV (7.4-10.4) fL Immature Gran % (Auto) % Neut % (Auto) % Lymph % (Auto) % Will % (Auto) % Eos % (Auto) % Baso % (Auto) % Immature Gran # (Auto) (0.00-0.02) K/uL Neut # (Auto) (1.4-6.5) K/uL Lymph # (Auto) (1.2-3.4) K/uL Will # (Auto) (0.11-0.59) K/uL Eos # (Auto) (0-0.5) K/uL Baso # (Auto) (0-0.2) K/uL Sodium (136-145) mmol/L Potassium (3.5-5.1) mmol/L Chloride (98-107) mmol/L Carbon Dioxide (21-32) mmol/L Anion Gap (3-11) BUN (7-18) mg/dl Creatinine (0.6-1.2) mg/dl Est Cr Clr Drug Dosing ml/min Est GFR ( Amer) Est GFR (Non-Af Amer) BUN/Creatinine Ratio (10-20) Glucose (70-99) mg/dl Calcium (8.5-10.1) mg/dl Total Bilirubin (0.2-1) mg/dl Direct Bilirubin (0-0.2) mg/dl AST (15-37) U/L ALT (12-78) U/L Alkaline Phosphatase (45-117) U/L Total Protein (6.4-8.2) gm/dl Albumin (3.4-5.0) gm/dl Lipase (73-393) U/L HCG, Qual (Negative) Urine Color Yellow Urine Appearance Clear (Clear) Urine pH 6.5 (4.5-7.5) Ur Specific [place] 1.018 (1.000-1.030) Urine Protein Negative (Negative) Urine Glucose (UA) Negative (Negative) Urine Ketones Trace H (Negative) Urine Blood Negative (Negative) Urine Nitrite Negative (Negative) Urine Bilirubin Negative (Negative) Urine Urobilinogen Negative (Negative) Ur Leukocyte Esterase Negative (Negative) Urine Test Negative (Negative) Impression & Plan Bilateral lower abdominal pain Discharge Plan Visit Data *Final* Discharge Date/Time: 08/07/18 10:35 Chief Complaint: Abdominal Pain Stated Complaint: STOMACH ACHE ED Provider: Reg Montgomery Discharge Problem: Bilateral lower abdominal pain Patient Disposition: Still a Patient Discharge Instructions Interventions: ED Discharge Assessment Last Done: 08/07/18 10:35 The scribe's documentation has been prepared under my direction and personally reviewed by me in its entirety. I confirm that the note above accurately reflects all work, treatment, procedures, and medical decision making performed by me.
[2018-08-07] MEDS: PIPERACILLIN/TAZOBACTAM 3.375 GM in DEXTROSE 5% 100 ML IV SCH (19:37)
--- NOTE | 2018-08-07 20:30 | Emergency Department Note ---
ED Visit Note The patient was taken in signout from Dr. Combs at the change of shift. Please see that note for details. The patient was pending CT abd/pelvis with IV and oral contrast for lower abdominal pain. CT demonstrated "mucosal hyperemia of the appendix, with dilation of lumen and a diameter of 8 mm. There is wall thickening of the appendix and surrounding inflammatory change." Patient re- evaluated and she dose have ttp over Mcburney's point with rebound tenderness. Patient reports blood pressure usually is SBP 90s. In ED, BP 90-100s/50-60s with HR 80-100s. Patient ordered for Cefoxitin. 0950: I reviewed the patient's case with Lucio Hernandez PA-C General Surgery [facility], who will evaluate the patient for OR/admission with Dr. Dale.
[2018-08-08] MEDS: HYDROCODONE/ACETAMOPHEN 5/325MG TAB PO PRN ×2 (01:07→10:14)
[2018-08-08] MEDS: PIPERACILLIN/TAZOBACTAM 3.375 GM in DEXTROSE 5% 100 ML IV SCH ×3 (03:41→21:02)
[2018-08-08 07:38] LABS: Basophils # (auto) 0.01 K/uL (0-0.2); Basophils % (auto) 0.1 %; Eosinophils # (auto) 0.01 K/uL (0-0.5); Eosinophils % (auto) 0.1 %; Hematocrit (blood only) 27.7 % (37-47); Hemoglobin 9.4 g/dL (12.0-16.0); Immature Granulocytes # (auto) 0.03 K/uL (0.00-0.02); Immature Granulocytes % (auto) 0.3 %; Lymphocytes # (auto) 1.14 K/uL (1.2-3.4); Lymphocytes % (auto) 10.3 %; Mean Corpuscular Hgb Conc 33.9 g/dL (32-36); Mean Corpuscular Volume 87.7 fL (80-100); Mean Platelet Volume 10.6 fL (7.4-10.4); Monocytes # (auto) 0.42 K/uL (0.11-0.59); Monocytes % (auto) 3.8 %; Neutrophils # (auto) 9.41 K/uL (1.4-6.5); Neutrophils % (auto) 85.4 %; Platelet Count 158 K/uL (130-400); RDW Coefficient of Variation 12.8 % (11.5-14.5); RDW Standard Deviation 41.6 fL (36.4-46.3); Red Blood Count 3.16 M/uL (4.2-5.4); White Blood Count 11.02 K/uL (4.8-10.8)
[2018-08-08 08:03] LABS: BUN Creatinine Ratio 9.7 (10-20); Calcium 7.9 mg/dl (8.5-10.1); Creatinine Clr Calc Pharmacy 99.8 ml/min; Est GFR (African American) 127.9; Est GFR (Non-African American) 110.4; Potassium 3.3 mmol/L (3.5-5.1)
--- NOTE | 2018-08-08 08:38 | Surgery Progress Note ---
Date of Service August 08, 2018 Assessment & Plan (1) Acute appendicitis: POD 1 doing well will re-eval after lunch for possible d/c later today Subjective pt seen. feeling "much better than yesterday". edward diet. Physical Exam Vital Signs (Past 24 Hours): Last Vital Signs Temp 36.6 C 08/08/18 03:12 Pulse 68 08/08/18 03:12 Resp 16 08/08/18 03:12 BP 92/56 L 08/08/18 03:12 Pulse Ox 99 08/08/18 03:12 Physical Exam: alert. nad abd: soft. expected tenderness. JOSE serous
[2018-08-08] MEDS: LACTATED RINGER'S 1,000 ML IV SCH (09:43)
--- NOTE | 2018-08-08 14:19 | Surgery Progress Note ---
Date of Service August 08, 2018 Assessment & Plan (1) Acute appendicitis: WBC 11, Hgb 9 will stop IVF, recheck labs in Am increase activity continue JOSE Subjective appetite fair, not OOB much Physical Exam Vital Signs (Past 24 Hours): Last Vital Signs Temp 36.7 C 08/08/18 12:00 Pulse 78 08/08/18 12:00 Resp 16 08/08/18 12:00 BP 92/57 L 08/08/18 12:00 Pulse Ox 99 08/08/18 12:00 Gastrointestinal (Abdomen): Inspection/Auscultation: + abdominal surgical drain present (50 cc) Percussion/Palpation: abdomen soft
[2018-08-09] MEDS: PIPERACILLIN/TAZOBACTAM 3.375 GM in DEXTROSE 5% 100 ML IV SCH ×2 (05:12→11:38)
[2018-08-09 07:26] LABS: Basophils # (auto) 0.01 K/uL (0-0.2); Basophils % (auto) 0.1 %; Eosinophils # (auto) 0.05 K/uL (0-0.5); Eosinophils % (auto) 0.7 %; Hematocrit (blood only) 27.7 % (37-47); Hemoglobin 9.5 g/dL (12.0-16.0); Immature Granulocytes # (auto) 0.02 K/uL (0.00-0.02); Immature Granulocytes % (auto) 0.3 %; Lymphocytes # (auto) 1.24 K/uL (1.2-3.4); Lymphocytes % (auto) 17.1 %; Mean Corpuscular Hgb Conc 34.3 g/dL (32-36); Mean Corpuscular Volume 88.8 fL (80-100); Mean Platelet Volume 10.9 fL (7.4-10.4); Monocytes # (auto) 0.38 K/uL (0.11-0.59); Monocytes % (auto) 5.2 %; Neutrophils # (auto) 5.56 K/uL (1.4-6.5); Neutrophils % (auto) 76.6 %; Platelet Count 157 K/uL (130-400); RDW Coefficient of Variation 13.1 % (11.5-14.5); RDW Standard Deviation 42.6 fL (36.4-46.3); Red Blood Count 3.12 M/uL (4.2-5.4); White Blood Count 7.26 K/uL (4.8-10.8)
[2018-08-09 07:43] LABS: Creatinine Clr Calc Pharmacy 98.5 ml/min; Est GFR (Non-African American) 108.7
--- NOTE | 2018-08-09 14:25 | Surgery Progress Note ---
Date of Service August 09, 2018 Assessment & Plan (1) Acute appendicitis: POD lap appy, perforated WBC 7, Hgb stable at 9 remove drain ok for discharge Subjective feeling better, tolerating diet Physical Exam Vital Signs (Past 24 Hours): Last Vital Signs Temp 37.0 C 08/09/18 07:14 Pulse 79 08/09/18 07:14 Resp 16 08/09/18 07:14 BP 95/61 L 08/09/18 07:14 Pulse Ox 95 08/09/18 07:14 Gastrointestinal (Abdomen): Inspection/Auscultation: + abdominal surgical drain present (20 cc serosang); abdomen not distended Percussion/Palpation: abdomen soft
--- NOTE | 2018-08-13 08:50 | Discharge Summary ---
PRIMARY DISCHARGE DIAGNOSIS: Acute appendicitis. PROCEDURE PERFORMED: Laparoscopic appendectomy. HOSPITAL COURSE: The patient is a 23-year-old female who presented to the Emergency Department with 48 hours of abdominal pain localizing right lower quadrant. Her white count was normal, but she had a left shift and CT was consistent with acute appendicitis. She was taken to the operating room for laparoscopic appendectomy. She had some murky pelvic fluid, also had a small perforation in the mid portion of the appendix. The procedure was well tolerated. She was transferred to the surgical floor. She was continued on IV Mefoxin. On postoperative day 1, her white count [place] slightly to 11,000. She was slow to increase diet and activity. On postoperative day 2, she was tolerating regular diet. JOSE drainage was serosanguineous. White count had normalized. JOSE drain was removed. She was stable for discharge home on oral antibiotics. Her abdomen was soft. Incisions were dry. DISCHARGE INSTRUCTIONS: Discharge home. Follow up with Dr. Dale in 7-10 days. DISCHARGE MEDICATIONS: Augmentin 875 mg p.o. b.i.d. x1 week, [place] 1-2 tablets every 4 hours as needed. She can continue ibuprofen 200 mg as needed.
== END 2018-08-09 16:08 | disposition home or self-care (01) ==
LOC: ED 04:50 → ASU 10:32 → 3W 10:32 → ASU 10:35